=== PATIENT | female | born 1995 | race American Indian/Alaskan Native ===

== ENCOUNTER 2016-12-20 07:42 | Inpatient (IN) | payer MEDICAID ==
[2016-12-20] MEDS ORDERED: LACTATED RINGERS 1,000 ML ONE (08:11)
--- NOTE | 2016-12-20 08:33 | Ultrasound Report ---
OB LIMITED History: No heart tones. Technique: Transabdominal ultrasound with Doppler interrogation. Gestation: Single Position: Cephalic Placenta: Posterior, right lateral Placental Grade: 1 Heart Rate: No heart rate could be detected BPM Comment: demise.
[2016-12-20] MEDS ORDERED: SUBLIMAZE IV ONE (08:43)
[2016-12-20] MEDS ORDERED: LACTATED RINGERS 2,000 ML ONE (09:02)
[2016-12-20 09:09] LABS: Basophils % (Auto) 0.2 % (0.0-1.8); Eosinophils % (Auto) 0.4 % (0.0-4.3); Hematocrit 28.7 % (30.3-42.9); Hemoglobin 9.6 gm/dl (10.1-14.3); Mean Corpuscular HGB Conc 33 % (30-34); Mean Corpuscular Hemoglobin 30 pg (28-32); Mean Corpuscular Volume 90 fl (79-97); Platelet Count 189 K/mm3 (140-440); Red Blood Count 3.18 M/mm3 (3.65-5.03); White Blood Count 15.3 K/mm3 (4.5-11.0)
[2016-12-20] MEDS ORDERED: ePHEDrine SULFATE IV PRN ×2 (09:23→10:34)
[2016-12-20] MEDS ORDERED: BRETHINE IVP PRN (09:23)
[2016-12-20] MEDS ORDERED: BRETHINE SUB-Q PRN (09:23)
[2016-12-20] MEDS ORDERED: MINERAL OIL PO PRN (09:23)
[2016-12-20] MEDS ORDERED: STADOL ONE (09:32)
[2016-12-20] MEDS ORDERED: PITOCin/NS 30 UNIT/500ML 30 UNIT/500 ML BAG IV SCH ×3 (10:00→16:00)
[2016-12-20] MEDS ORDERED: LACTATED RINGERS 1,000 ML IV SCH (10:00)
[2016-12-20 10:01] LABS: HIVR-1/2 Ab Non React (Non React)
[2016-12-20 10:02] LABS: HIV-1 Antigen p24 Non React (Non React)
[2016-12-20] MEDS ORDERED: fentaNYL-BUPIV 2 MCG/ML-0.125% 200 MCG/100 ML BAG EPIDURAL ONE (10:30)
[2016-12-20] MEDS ORDERED: NARCAN 2 MG/2 ML IV PRN (10:34)
--- NOTE | 2016-12-20 10:34 | Anesthesia Consultation ---
Anesthesia Consult and Med Hx Date of service: 12/20/16 - Airway Anesthetic Teeth Evaluation: Good ROM Head & Neck: Adequate Mental/Hyoid Distance: Adequate Mallampati Class: Class II Intubation Access Assessment: Probably Good - Pre-Operative Health Status ASA Pre-Surgery Classification: ASA2 Proposed Anesthetic Plan: Epidural, Spinal - Pulmonary Hx Asthma: No - Cardiovascular System Hx Hypertension: Yes (high bp prior to ) - Central Nervous System Hx Seizures: No Hx Psychiatric Problems: No - Endocrine Hx Renal Disease: No Hx Hypothyroidism: No Hx Hyperthyroidism: No - Hematic Hx Anemia: No Hx Sickle Cell Disease: No - Other Systems Hx Alcohol Use: No Hx Obesity: Yes (BMI 43.3) - Additional Comments Anesthesia Medical History Comments: Abruption, 38 weeks, demise
[2016-12-20] MEDS: fentaNYL-BUPIV 2 MCG/ML-0.125% 200 MCG/100 ML BAG EPIDURAL SCH ×2 (11:35→18:39)
[2016-12-20] MEDS ORDERED: ePHEDrine SULFATE ONE (11:50)
[2016-12-20] MEDS ORDERED: CYTOTEC VG PRN (13:00)
[2016-12-20 13:46] LABS: Urine Drugs of Abuse Note Disclamer
--- NOTE | 2016-12-20 13:58 | History and Physical Report ---
History of Present Illness Date of examination: 12/20/16 Date of admission: 12/20/16 08:30 Chief complaint: pelvic pain History of present illness: 21y/o @ 38+6 weeks presents with pelvic pain. The patient was evaluated in triage and no heart tones could be detected on NST. An ultrasound was ordered immediately which confirmed an intrauterine demise. The patient is a transfer of care from [facility]. She states she was seen approximately a week ago. She denies leakage of fluid or vaginal bleeding. Her course was complicated by chronic hypertension. Patient evaluated earlier in triage. This is a late note entry. Past History Past Medical History: hypertension Past Surgical History: no surgical history Social history: single - Obstetrical History Expected Date of Delivery: 12/28/16 Actual Gestation: 38 Week(s) 6 Day(s) : 2 Para: 0 Hx # Term Pregnancies: 0 Number of Pregnancies: 0 Spontaneous Abortions: 1 Induced : 0 Number of Living Children: 0 Medications and Allergies Allergies Allergy/AdvReac Type Severity Reaction Status Date / Time No Known Allergies Allergy Verified 08/31/16 21:39 Active Meds: Active Medications Lactated Ringer's (Lactated Ringers) 1,000 mls @ 125 mls/hr IV DIRECT KATHY Oxytocin/Sodium Chloride (Pitocin/Ns 20 Unit/1000ml Drip) 20 unit in 1,000 mls @ 125 mls/hr IV DIRECT KATHY Oxytocin/Sodium Chloride (Pitocin/Ns 30 Unit/500ml) 30 unit in 500 mls @ 0 mls/ hr IV TITR KATHY PRN Reason: Protocol Fentanyl/Bupivacaine/Sodium Chlor (Fentanyl-Bupiv 2 Mcg/Ml-0.125%) 200 mcg in 100 mls @ 12 mls/hr EPIDURAL TITR KATHY PRN Reason: Protocol Last Admin: 12/20/16 11:35 Dose: 12 mls/hr Oxytocin/Sodium Chloride (Pitocin/Ns 30 Unit/500ml) 30 unit in 500 mls @ 1 mls/ hr IV TITR KATHY; 1 MILLIUNITS/MIN PRN Reason: Protocol Mineral Oil (Mineral Oil) 30 ml PO QHS PRN PRN Reason: Constipation Misoprostol (Cytotec) 50 mcg VG Q4H PRN PRN Reason: Labor Pain Review of Systems All systems: negative Genitourinary: pelvic pain, contractions, no vaginal bleeding, no leakage of fluid - Vital Signs Vital signs: Vital Signs Pulse Pulse Ox 101 H 99 12/20/16 08:04 12/20/16 08:04 Temp Pulse Resp BP Pulse Ox 98.2 F 109 H 16 106/62 100 12/20/16 09:30 12/20/16 13:51 12/20/16 11:35 12/20/16 13:50 12/20/16 13:51 - Physical Exam Breasts: Positive: normal, other (tenderness around right nipple) Cardiovascular: Regular rate Lungs: Positive: Clear to auscultation Abdomen: Positive: soft - Obstetrical Cervical Dilatation: 1 Cervical Effacement Percentage: 50 station: -2 Results Result Diagrams: 12/20/16 08:50 Abnormal lab results 12/20/16 Range/Units 08:50 WBC 15.3 H (4.5-11.0) K/mm3 RBC 3.18 L (3.65-5.03) M/mm3 Hgb 9.6 L (10.1-14.3) gm/dl Hct 28.7 L (30.3-42.9) % [place] # 0.9 H (0.0-0.8) K/mm3 Seg Neutrophils # 10.7 H (1.8-7.7) K/mm3 All other labs normal. Assessment and Plan - Patient Problems (1) Chronic hypertension affecting Current Visit: Yes Status: Acute Plan to address problem: admit patient for induction of labor (2) demise Current Visit: Yes Status: Acute (3) Placental abruption Current Visit: Yes Status: Acute Qualifiers: Trimester: T
--- NOTE | 2016-12-20 14:05 | Event Note ---
Date: 12/20/16 Amniotomy performed with clear fluid. Cervical change noted. Cervix now 1cm/50/- 2. IUPC placed. Will transition to pitocin.
[2016-12-20 14:07] LABS: Bacteria,Urine 1+ /HPF (Negative); Bilirubin,Urine NEG (Negative); Blood,Urine SM (Negative); Ketones,Urine NEG (Negative); Leukocyte Esterase,Urine NEG (Negative); Mucus,Urine FEW /HPF; Nitrite,Urine NEG (Negative); Urobilinogen,Urine < 2.0 mg/dL (<2.0)
[2016-12-20 14:10] LABS: Protein,Urine >500 mg/dL (Negative)
[2016-12-21] MEDS: fentaNYL-BUPIV 2 MCG/ML-0.125% 200 MCG/100 ML BAG EPIDURAL SCH (02:59)
[2016-12-21] MEDS ORDERED: TYLENOL PO ONE (03:09)
[2016-12-21] MEDS ORDERED: CYTOTEC ONE (03:35)
[2016-12-21 03:39] LABS: Bacteria,Urine 1+ /HPF (Negative); Bilirubin,Urine NEG (Negative); Blood,Urine LG (Negative); Ketones,Urine NEG (Negative); Leukocyte Esterase,Urine MOD (Negative); Mucus,Urine 3+ /HPF; Nitrite,Urine NEG (Negative); Urobilinogen,Urine < 2.0 mg/dL (<2.0)
[2016-12-21 03:58] LABS: Alanine Aminotransferase 16 units/L (7-56)
[2016-12-21] MEDS ORDERED: GARAMYCIN/NS 80 MG/100 ML 100 ML IV SCH (04:00)
[2016-12-21 04:01] LABS: INR 1.27 (0.87-1.13)
[2016-12-21 04:02] LABS: Partial Thromboplastin Time 29.9 Sec. (24.2-36.6)
[2016-12-21] MEDS ORDERED: SUBLIMAZE ONE (04:28)
[2016-12-21] MEDS: PITOCin/NS 20 UNIT/1000ML DRIP 20 UNIT/1,000 ML BAG IV SCH ×2 (04:38→09:06)
[2016-12-21] MEDS ORDERED: TYLENOL PO PRN (04:48)
[2016-12-21] MEDS ORDERED: TUCKS PAD TP PRN (04:48)
[2016-12-21] MEDS ORDERED: BENADRYL PO PRN (04:48)
[2016-12-21] MEDS ORDERED: MILK OF MAGNESIA PO PRN (04:48)
[2016-12-21] MEDS ORDERED: DERMOPLAST TP PRN (04:48)
[2016-12-21] MEDS ORDERED: PHENERGAN PO PRN (04:48)
[2016-12-21] MEDS ORDERED: ZOFRAN IV PRN (04:48)
[2016-12-21] MEDS ORDERED: PHENERGAN PR PRN (04:48)
[2016-12-21] MEDS ORDERED: LANSINOH TP PRN (04:48)
[2016-12-21] MEDS ORDERED: DULCOLAX PR PRN (04:48)
[2016-12-21] MEDS ORDERED: POLYCILLIN/NS 2 GM/100 ML 2 GM/100 ML BAG IV SCH (05:00)
[2016-12-21] MEDS ORDERED: SODIUM CHLORIDE FLUSH SYRINGE 10 ML IV PRN (05:00)
--- NOTE | 2016-12-21 05:03 | Procedure Note ---
OB Delivery Note - Delivery Date of Delivery: 12/21/16 Surgeon: PARTH TONEY Estimated blood loss: other (2000ml) - Vaginal Delivery presentation: vertex Delivery position: OA Intrapartum events: febrile- temp >100.3, abruption, hemorrhage Delivery induction: misoprostol Delivery augmentation: rupture of membranes, pitocin Delivery monitor: external uterine, internal FHT Route of delivery: Delivery placenta: spontaneous Delivery cord: nuchal cord, 3 umbilical vessels Episiotomy: none Delivery laceration: none Anesthesia: epidural Delivery comments: Prior to delivery the patient complained of worsening abdominal pain. The physician was notified by the nursing staff that the patient was febrile. Antibiotics and Tylenol were given to the patient. The patient progressed to complete complete +1 station. Patient pushed to deliver a stillborn male infant. After delivery of the head there was noted to be a nuchal cord that was manually reduced. Delivery of the anterior shoulder required mild traction. The posterior shoulder had to be delivered in order to facilitate delivery of the infant. The cord was clamped and cut 2 and the was placed on the warmer. Placenta delivered easily with minimal traction. Evaluation of the placenta revealed a three-vessel cord with evidence of an organized clot on the surface of the placenta. Multiple organized clots were expressed from the vagina after delivery of the placenta. There was approximately 2000 mL of blood removed. The patient sustained no lacerations to the vagina. She responded well to the Pitocin after extraction of the clots. Her lochia was minimal. Further evaluation of the infant revealed a phenotypical normal male infant with a weight of 5 lbs. 14 oz. the patient was given the opportunity to cool with her after delivery. The patient noted significant improvement of her abdominal pain after delivery. - Infant A at 1 minute: 0 at 5 minutes: 0 Infant Gender: Male (weight 5 lbs. 14 oz.)
--- NOTE | 2016-12-21 05:06 | Event Note ---
Date: 12/21/16 After evaluation of the placenta and delivery was consistent with a complete placental abruption. The patient's coagulation panel was mildly elevated. Her liver function tests were within normal limits. She is currently not demonstrating any evidence of DIC. The patient was informed of the possibility of transfusion of blood products for anemia. A CBC was drawn . Will continue to monitor the patient closely for hemodynamic status.
[2016-12-21 05:14] LABS: Red Blood Count 1.75 M/mm3 (3.65-5.03); White Blood Count 21.2 K/mm3 (4.5-11.0)
[2016-12-21 05:15] LABS: Hematocrit 16.1 % (30.3-42.9); Hemoglobin 5.2 gm/dl (10.1-14.3); Mean Corpuscular Volume 92 fl (79-97)
[2016-12-21 05:16] LABS: Mean Corpuscular HGB Conc 32 % (30-34); Mean Corpuscular Hemoglobin 30 pg (28-32); Platelet Count 64 K/mm3 (140-440); Red Cell Distribution Width 14.1 % (13.2-15.2)
--- NOTE | 2016-12-21 05:16 | Event Note ---
Date: 12/21/16 Acute blood loss from delivery. Patient with findings of anemia and thrombocytopenia. Will continue to monitor for changes in coagulopathy. Will transfuse 2 units of prbcs. Will consider FFP and platelets as necessary. Patient currently clinically stable.
[2016-12-21] MEDS ORDERED: NACL 0.9% 500 ML 500 ML IV ONE (05:18)
[2016-12-21] MEDS ORDERED: SUBLIMAZE IV ONE (05:32)
[2016-12-21] MEDS: MOTRIN PO SCH ×3 (05:39→22:59)
[2016-12-21 06:55] LABS: Lactate Dehydrogenase 304 units/L (91-180); Uric Acid 5.1 mg/dL (3.5-7.6)
[2016-12-21 07:14] LABS: Hematocrit 20.4 % (30.3-42.9); Hemoglobin 6.7 gm/dl (10.1-14.3); Mean Corpuscular HGB Conc 33 % (30-34); Mean Corpuscular Hemoglobin 29 pg (28-32); Mean Corpuscular Volume 89 fl (79-97); Red Blood Count 2.29 M/mm3 (3.65-5.03); Red Cell Distribution Width 14.2 % (13.2-15.2)
[2016-12-21 07:16] LABS: Platelet Count 62 K/mm3 (140-440); White Blood Count 21.4 K/mm3 (4.5-11.0)
[2016-12-21] MEDS: NORCO 5/325 PO PRN ×3 (07:52→22:58)
[2016-12-21] MEDS ORDERED: PITOCin/NS 30 UNIT/500ML 30 UNIT/500 ML BAG IV SCH ×3 (13:00)
[2016-12-21 13:45] LABS: Hematocrit 24.1 % (30.3-42.9); Mean Corpuscular HGB Conc 33 % (30-34); Mean Corpuscular Hemoglobin 30 pg (28-32); Mean Corpuscular Volume 90 fl (79-97); Red Blood Count 2.67 M/mm3 (3.65-5.03); Red Cell Distribution Width 13.9 % (13.2-15.2)
[2016-12-21 13:48] LABS: Platelet Count 62 K/mm3 (140-440); White Blood Count 23.9 K/mm3 (4.5-11.0)
[2016-12-21 13:56] LABS: INR 1.1 (0.87-1.13); Partial Thromboplastin Time 28.6 Sec. (24.2-36.6)
[2016-12-21 14:26] LABS: Basophils % (Manual) 0 % (0.0-1.8); Blastocytes % (Manual) 0 %; Eosinophils % (Manual) 0 % (0.0-4.3)
[2016-12-21 14:27] LABS: Platelet Estimate Appears Decreased
[2016-12-21 14:28] LABS: Diff Status Complete; Microcytosis Rare
[2016-12-21] MEDS ORDERED: NACL 0.9% 500 ML 500 ML IV NR (15:00)
[2016-12-22] MEDS: AMBIEN PO PRN (02:18)
[2016-12-22] MEDS: PERCOCET 5/325 PO PRN ×4 (02:18→22:35)
--- NOTE | 2016-12-22 11:30 | Progress Note ---
Assessment and Plan ppd 1 s/p abruption with demise. anemia noted. Iron started. pt seen by psychiatry. Normal grief reaction per psychiatric provider. will consider d/c tomorrow if stable. Subjective - Subjective Date of service: 12/22/16 Principal diagnosis: ppd 1 s/p abruption with IUFD Interval history: pt was very upset last pm. psych consult ordered re- term loss. Patient reports: appetite normal, voiding normally, pain well controlled : Objective - Vital Signs Latest vital signs: Vital Signs Temp Pulse Pulse Resp BP BP 12/22/16 07:48 98.5 F 96 H 18 119/66 12/22/16 04:10 98.6 F 105 H 20 127/73 12/22/16 00:37 99 F 108 H 20 144/90 12/21/16 20:37 98.8 F 98 H 20 147/83 12/21/16 16:20 99.0 F 86 24 116/60 12/21/16 12:45 98.6 F 96 H 20 143/77 Intake and Output 12/21/16 12/22/16 12/22/16 22:59 06:59 14:59 Intake Total 360 120 Output Total 300 700 350 Balance -300 -340 -230 Intake: Oral 120 Intake, Free Water 360 Output: Urine 300 700 350 Void 300 700 350 Other: Total, Intake Amount 120 Total, Output Amount 300 700 350 # Voids Void 1 - Exam Breasts: Present: deferred Cardiovascular: Present: Regular rate, Normal S1, Normal S2 Lungs: Present: Clear to auscultation Abdomen: Present: normal appearance, soft Vulva: both: normal Uterus: Present: normal, firm Extremities: Present: normal Deep Tendon Reflex Grade: Normal +2 Incision: Present: normal, dry, intact - Labs Labs: Abnormal lab results 12/20/16 12/21/16 Range/Units 08:50 13:23 WBC 23.9 H (4.5-11.0) K/mm3 RBC 2.67 L (3.65-5.03) M/mm3 Hgb 8.0 L (10.1-14.3) gm/dl Hct 24.1 L (30.3-42.9) % Plt Count 62 L (140-440) K/mm3 Seg Neuts % (Manual) 80.0 H (40.0-70.0) % Lymphocytes % (Manual) 12.0 L (13.4-35.0) % Seg Neutrophils # Man 19.1 H (1.8-7.7) K/mm3 Crossmatch See Detail
[2016-12-22] MEDS: MOTRIN PO SCH ×2 (11:43→18:21)
[2016-12-22] MEDS: ceFAZolin 2 GM in NACL 0.9% 100 ML IV SCH (16:00)
[2016-12-22] MEDS: FEOSOL PO SCH ×2 (17:15→22:40)
[2016-12-23] MEDS: AMBIEN PO PRN (01:45)
[2016-12-23] MEDS: ceFAZolin 2 GM in NACL 0.9% 100 ML IV SCH (01:45)
[2016-12-23] MEDS: MOTRIN PO SCH ×2 (02:35→10:10)
[2016-12-23] MEDS: PERCOCET 5/325 PO PRN ×2 (02:38→10:10)
--- NOTE | 2016-12-23 07:29 | Progress Note ---
Assessment and Plan ppd 2 s/p - abruption with demise Subjective - Subjective Date of service: 12/23/16 Principal diagnosis: ppd 2 s/p abruption with IUFD Interval history: pt requesting dicharge this am. pt will have completed 24 hours of antibiotics at noon. will d/c home on Po keflex to f/u in office in 1 week for BP check Patient reports: appetite normal, voiding normally, pain well controlled [place]: Objective - Vital Signs Latest vital signs: Vital Signs Temp Pulse Resp BP 12/23/16 04:28 97.3 F L 96 H 20 114/60 12/22/16 23:15 98.6 F 100 H 20 147/76 12/22/16 19:35 98.4 F 88 20 135/67 12/22/16 15:35 97.8 F 97 H 28 H 140/63 12/22/16 12:22 98.3 F 100 H 24 138/74 12/22/16 07:48 98.5 F 96 H 18 119/66 Intake and Output 12/22/16 12/23/16 12/23/16 22:59 06:59 14:59 Intake Total 960 Balance 960 Intake: Oral 960 Other: Total, Intake Amount 480 Voiding Method Toilet # Voids Void 1 2 # Bowel Movements 0 - Exam Breasts: Present: deferred Cardiovascular: Present: Regular rate, Normal S1, Normal S2 Lungs: Present: Clear to auscultation Abdomen: Present: normal appearance, soft Vulva: both: normal Uterus: Present: normal, firm Extremities: Present: normal Incision: Present: normal, dry, intact
--- NOTE | 2016-12-23 07:34 | Discharge Summary ---
Providers - Providers Date of Admission: 12/20/16 08:30 Date of discharge: 12/23/16 Attending physician: PARTH TONEY 12/22/16 07:40 psychiatry consult [Consult to Mental Health] [CONS] Routine Reason For Exam: loss of 38 week fetus/ coping Place consult to:: emi Notified:: later in Am Primary care physician: PARTH TONEY Hospitalization Reason for admission: IUFD Delivery: Procedure details: s/p induction with of iufd secondary to abruption Episiotomy: none Laceration: none Other procedures: other (anemia- requiring transfusion) complications: none Discharge diagnosis: IUP at term delivered baby: male Hospital course: routine course. pt given opportunity to grieve. pt seen by psychiatry during hospital course. Condition at discharge: Good Disposition: DISCHARGED TO HOME OR SELFCARE - Discharge Diagnoses (1) Chronic hypertension affecting Status: Acute (2) demise Status: Acute (3) Placental abruption Status: Acute Qualifiers: Trimester: T (4) Anemia Status: Acute Qualifiers: Anemia type: A Iron deficiency anemia type: I Vitamin B12 deficiency anemia type: V Folate deficiency anemia type: F Bone marrow failure anemia type: B Hemolytic anemia type: H Other causes of anemia: O Comment: anemia present on presentation and worsened by delivery with aburption. Plan - Discharge Medications Prescriptions: Cephalexin [Keflex] 500 mg PO Q6HR #30 capsule Ferrous Sulfate [Feosol 325 MG tab] 325 mg PO BID #60 tablet Ibuprofen [Motrin 800 MG tab] 800 mg PO Q8HR PRN #30 tablet PRN Reason: Pain oxyCODONE /ACETAMINOPHEN [Percocet 5/325] 1 tab PO Q6HR PRN #30 tablet PRN Reason: Pain - Provider Discharge Summary Activity: routine, no sex for 6 weeks, no heavy lifting 4 weeks, no strenuous exercise Diet: routine Instructions: routine Additional instructions: [] Smoking cessation referral if applicable(refer to patient education folder for contact #) [] Refer to [facility] Booklet Call your doctor immediately for: * Fever > 100.5 * Heavy vaginal bleeding ( >1 pad per hour) * Severe persistent headache * Shortness of breath * Reddened, hot, painful area to leg or breast * Drainage or odor from incision. * Keep incision clean and dry at all times and follow doctor's instructions regarding bathing/showering - Follow up plan Follow up: PARTH TONEY MD [Primary Care Provider] - 7 Days
[2016-12-23 09:05] LABS: Hematocrit 22.4 % (30.3-42.9); Hemoglobin 7.3 gm/dl (10.1-14.3); Mean Corpuscular HGB Conc 33 % (30-34); Mean Corpuscular Hemoglobin 30 pg (28-32); Mean Corpuscular Volume 91 fl (79-97); Platelet Count 122 K/mm3 (140-440); Red Blood Count 2.47 M/mm3 (3.65-5.03); White Blood Count 13.6 K/mm3 (4.5-11.0)
[2016-12-23 09:11] VITALS: BP 137/78
[2016-12-23 11:28] LABS: Basophils % (Manual) 0 % (0.0-1.8); Blastocytes % (Manual) 0 %; Eosinophils % (Manual) 0 % (0.0-4.3)
[2016-12-23 11:29] LABS: Anisocytosis 1+; Diff Status Complete; Platelet Estimate Consistent w Auto
== END 2016-12-23 11:30 | disposition home or self-care (01) | DRG 774 ==
LOC: TRG 07:42 → LD 08:30 → OB 12-21 12:38
PROVIDERS: ADMIT Obstetrics & Gynecology; ATTEND Obstetrics & Gynecology
PROC: 10907ZC Drainage of Amniotic Fluid, Therapeutic from Products of Conception, Via Natural or Artificial Opening (ICD-10-PCS; 2016-12-20)
PROC: 10H07YZ Insertion of Other Device into Products of Conception, Via Natural or Artificial Opening (ICD-10-PCS; 2016-12-20)
PROC: 10E0XZZ Delivery of Products of Conception, External Approach (ICD-10-PCS; principal; 2016-12-21)
PROC: 3E0S3CZ (ICD-10-PCS; 2016-12-21)
PROC: 00HU33Z Insertion of Infusion Device into Spinal Canal, Percutaneous Approach (ICD-10-PCS; 2016-12-21)
PROC: 30233N1 Transfusion of Nonautologous Red Blood Cells into Peripheral Vein, Percutaneous Approach (ICD-10-PCS; 2016-12-21)
PROC: 3E0P7GC Introduction of Other Therapeutic Substance into Female Reproductive, Via Natural or Artificial Opening (ICD-10-PCS; 2016-12-21)
DX: O10.92 Unspecified pre-existing hypertension complicating childbirth (principal); O45.93 Premature separation of placenta, unspecified, third trimester; O36.4XX0 Maternal care for intrauterine death, not applicable or unspecified; O72.1 Other immediate postpartum hemorrhage; D62 Acute posthemorrhagic anemia; O99.214 Obesity complicating childbirth; Z3A.38 38 weeks gestation of pregnancy; Z37.1 Single stillbirth; O72.3 Postpartum coagulation defects; O69.81X0 Labor and delivery complicated by cord around neck, without compression, not applicable or unspecified; O99.02 Anemia complicating childbirth; D64.9 Anemia, unspecified
CPT/HCPCS: 36415; 36430; 59200; 76815; 80307; 81001; 82565; 83615; 84450; 84460; 84550; 85007; 85025; 85027; 85384; 85610; 85730; 86592; 86706; 86762; 86803; 86850; 86900; 86901; 86920; 87806; 88307; J0290; J0595; J0690; J1580; J2590; J3010; J7040; J7120; P9016

== ENCOUNTER 2019-12-06 20:54 | Outpatient (CLI) | payer MEDICAID ==
[2019-12-06] MEDS ORDERED: ACETAMINOPHEN 500 MG TAB PO ONE (22:06)
[2019-12-06 22:17] LABS: Bilirubin,Urine NEG (Negative); Blood,Urine NEG (Negative); Color,Urine Yellow (Yellow); Mucus,Urine FEW /HPF; Protein,Urine <15 mg/dL mg/dL (Negative)
[2019-12-06 22:52] VITALS: BP 122/68
== END 2019-12-06 22:35 | disposition home or self-care (01) ==
LOC: TRG 20:54
PROVIDERS: ATTEND Obstetrics & Gynecology
DX: O16.3 Unspecified maternal hypertension, third trimester (principal); O26.893 Other specified pregnancy related conditions, third trimester; R51 Headache; Z3A.28 28 weeks gestation of pregnancy
CPT/HCPCS: 59025; 81001

== ENCOUNTER 2019-12-28 12:27 | Outpatient (CLI) | payer MEDICAID ==
[2019-12-28] MEDS: LACTATED RINGERS 1,000 ML IV SCH ×2 (13:27→16:42)
[2019-12-28 13:56] LABS: Bilirubin,Urine NEG (Negative); Blood,Urine NEG (Negative); Color,Urine Yellow (Yellow); Mucus,Urine 1+ /HPF; Protein,Urine <15 mg/dL mg/dL (Negative)
[2019-12-28 14:20] VITALS: BP 119/78
--- NOTE | 2019-12-28 16:23 | Ultrasound Report ---
Limited OB ultrasound INDICATION: , clinical concern for abruption FINDINGS: Limited imaging is performed. The placenta is located posteriorly near the fundus to the left of midline. The placenta is grade 0. No abruption is seen. heart rate is 159 bpm. The fetus is in a cephalic presentation. Amniotic fluid index is 8.6 cm. IMPRESSION: No abruption is seen. Signer Name: Andre Washburn MD Signed: 12/28/2019 4:19 PM Workstation Name: [id number]
--- NOTE | 2019-12-28 16:57 | Ultrasound Report ---
Biophysical profile INDICATION: well-being COMPARISON: None FINDINGS: breathing movement: 2/2 movement: 2/2 posture and tone: 2/2 Qualitative amniotic fluid volume: 2/2 IMPRESSION: Total score for biophysical profile is 8/8 heart rate is 157 bpm Signer Name: Andre Washburn MD Signed: 12/28/2019 4:52 PM Workstation Name: [id number]
== END 2019-12-28 16:31 | disposition home or self-care (01) ==
LOC: TRG 12:27
PROVIDERS: ATTEND Obstetrics & Gynecology
DX: O42.913 Preterm premature rupture of membranes, unspecified as to length of time between rupture and onset of labor, third trimester (principal); O26.893 Other specified pregnancy related conditions, third trimester; M54.9 Dorsalgia, unspecified; O47.03 False labor before 37 completed weeks of gestation, third trimester; O10.913 Unspecified pre-existing hypertension complicating pregnancy, third trimester; Z3A.32 32 weeks gestation of pregnancy; Z87.891 Personal history of nicotine dependence
CPT/HCPCS: 76815; 76819; 81001; 87086; 96360; 96361; J7120

== ENCOUNTER 2020-01-22 15:20 | Outpatient (CLI) | payer MEDICAID ==
[2020-01-22 15:53] LABS: Bilirubin,Urine NEG (Negative); Blood,Urine NEG (Negative); Color,Urine Yellow (Yellow); Mucus,Urine 3+ /HPF; Protein,Urine <15 mg/dL mg/dL (Negative)
[2020-01-22] MEDS ORDERED: LACTATED RINGERS 1,000 ML IV SCH (16:00)
[2020-01-22 17:41] VITALS: BP 120/75
--- NOTE | 2020-01-22 18:38 | Ultrasound Report ---
US OB BPP wo non-stress, US OB limited INDICATION / CLINICAL INFORMATION: c/o leaking. COMPARISON: 12/28/2019 FINDINGS: Single viable fetus in the cephalic presentation. heart rate 152 bpm. The CELINE is 10. The grade 1 placenta is on the maternal left side. IMPRESSION: 1. Viable single intrauterine gestation. Signer Name: Zeyad Hayes MD Signed: 01/22/2020 6:34 PM Workstation Name: [id number]
== END 2020-01-22 19:18 | disposition home or self-care (01) ==
LOC: TRG 15:20
PROVIDERS: ATTEND Obstetrics & Gynecology
DX: O42.913 Preterm premature rupture of membranes, unspecified as to length of time between rupture and onset of labor, third trimester (principal); Z3A.40 40 weeks gestation of pregnancy
CPT/HCPCS: 59025; 76815; 76819; 81001